=== PATIENT | female | born 1985 | race American Indian/Alaskan Native ===

== ENCOUNTER 2019-09-11 11:46 | Emergency (ER) | payer MEDICAID ==
--- NOTE | 2019-09-11 12:08 | Emergency Department Report ---
ED Lower Extremity HPI - General Stated Complaint: KNEE DISLOCATION Time Seen by Provider: 09/11/19 12:03 - History of Present Illness Initial Comments: 34-year-old female with history of asthma, presents to ED with left knee injury. Patient states she tripped and fell states she felt a pop in her knee. Patient states EMS was called. Upon their arrival, patella appeared to be dislocated, however patient states after splint was applied, she felt something pop again. Patient states it no longer appears that her patella is dislocated like it did prior to ED arrival. MD Complaint: knee injury -: hour(s) (1) Injury: Knee: Left Severity: moderate Improves With: immobilization Worsens With: movement Context: fall Associated Symptoms: snap/pop sensation, unable to bear weight - Related Data Previous Rx's Medication Instructions Recorded Last Taken Type HYDROcodone/APAP 5-325 [[place] 1 each PO Q6HR PRN #7 tablet 09/11/19 Unknown Rx 5/325] Naproxen [Naprosyn] 500 mg PO BID #20 tablet 09/11/19 Unknown Rx Allergies Allergy/AdvReac Type Severity Reaction Status Date / Time No Known Allergies Allergy Unverified 09/11/19 12:12 ED Review of Systems ROS: Stated complaint: KNEE DISLOCATION Other details as noted in HPI Comment: All other systems reviewed and negative Musculoskeletal: as per HPI Neurological: denies: numbness, paresthesias ED Past Medical Hx - Medications Home Medications: Home Medications Medication Instructions Recorded Confirmed Last Taken Type HYDROcodone/APAP 5-325 [[place] 1 each PO Q6HR PRN #7 tablet 09/11/19 Unknown Rx 5/325] Naproxen [Naprosyn] 500 mg PO BID #20 tablet 09/11/19 Unknown Rx ED Physical Exam - General General appearance: alert, in no apparent distress - Head Head exam: Present: atraumatic, normocephalic - Eye Eye exam: Present: normal appearance, EOMI - ENT ENT exam: Present: mucous membranes moist - Neck Neck exam: Present: normal inspection - Respiratory Respiratory exam: Present: normal lung sounds bilaterally. Absent: respiratory distress - Cardiovascular Cardiovascular Exam: Present: regular rate, normal rhythm - GI/Abdominal GI/Abdominal exam: Absent: distended - Extremities Exam Extremities exam: Present: normal inspection, normal capillary refill, other (no obvious deformity at the knee; DP pulse strong, sensation intact, strength 5/5, able to move toes). Absent: full ROM (decreased flexion at the left knee secondary to pain), joint swelling - Neurological Exam Neurological exam: Present: alert, oriented X3 - Psychiatric Psychiatric exam: Present: normal affect, normal mood - Skin Skin exam: Present: warm, dry, intact, normal color ED Course Vital Signs 09/11/19 09/11/19 09/11/19 11:53 11:56 12:00 Temperature 98.5 F Pulse Rate 78 85 Respiratory 18 18 Rate Blood Pressure 113/74 113/74 O2 Sat by Pulse 100 88 100 Oximetry Critical care attestation.: If time is entered above; I have spent that time in minutes in the direct care of this critically ill patient, excluding procedure time. ED Disposition Clinical Impression: Dislocation of patella, left, closed, Acute internal derangement of left knee Disposition: - TO HOME OR SELFCARE Is pt being admited?: No Condition: Stable Instructions: Knee Sprain (ED), Knee Immobilizer (ED), Patellar Dislocation (ED) Prescriptions: Naproxen [Naprosyn] 500 mg PO BID #20 tablet HYDROcodone/APAP 5-325 [[place] 5/325] 1 each PO Q6HR PRN #7 tablet PRN Reason: Pain Referrals: MIRNA RAY MD [Staff Physician] - 3-5 Days Time of Disposition: 14:08
[2019-09-11] MEDS ORDERED: MORPHINE 2 MG/1 ML INJ IV ONE (12:14)
--- NOTE | 2019-09-11 13:17 | XRay Report ---
LEFT KNEE 3 VIEWS INDICATION: fall, pain. COMPARISON: None. IMPRESSION: There is suggestion of very subtle deformity of the lateral tibial plateau which could r epresent a nondisplaced fracture. The remaining bony structures are intact. Medium joint effusion is identified on the lateral image. No significant DJD. Consider further evaluation with CT. Signer Name: Nguyễn Rhoades Jr, MD Signed: 09/11/2019 1:12 PM Workstation Name: [id number]
[2019-09-11] MEDS ORDERED: HYDROmorphone 1 MG/1 ML INJ IV ONE (14:00)
--- NOTE | 2019-09-11 14:04 | Cat Scan Report ---
CT lower extremity LT wo con INDICATION: knee injury, pain, questionable fracture on xray. TECHNIQUE: CT of the left knee without contrast. All CT scans at this location are performed using CT dose reduc tion for ALARA by means of automated exposure control. COMPARISON: Left knee x-rays done earlier on 09/11/2019. FINDINGS: There is no acute fracture or subluxation in the left knee. Overall mineralization is normal. Alignme nt is normal. There is no joint effusion. Visualized muscles and tendons around the knee appear intact and unremarkable. IMPRESSION: 1. No acute fracture or subluxation in the left knee. No acute findings. Signer Name: Noman Acevedo MD Signed: 09/11/2019 2:00 PM Workstation Name: [id number]
[2019-09-12 13:22] VITALS: BP 117/64
== END 2019-09-11 15:30 | disposition home or self-care (01) ==
LOC: ED 11:46
DX: S83.005A Unspecified dislocation of left patella, initial encounter (principal); W19.XXXA Unspecified fall, initial encounter; Y93.89 Activity, other specified; Y92.89 Other specified places as the place of occurrence of the external cause; Y99.8 Other external cause status
CPT/HCPCS: 29505; 73562; 73700; 96374; 96375; 99284; J1170; J2270